=== PATIENT | female | born 1965 | race Caucasian/White ===

== ENCOUNTER 2022-03-21 12:27 | Outpatient (CLI) | payer BC ==
[2022-03-21 13:09] LABS: BASOPHILS # (AUTO) 0.1 X10'3 (0-0.2); EOSINOPHILS # (AUTO) 0.3 X10'3 (0-0.9); HEMATOCRIT 39.7 % (35.0-45.0); HEMOGLOBIN 13.5 g/dl (12.0-16.0); LYMPHOCYTES # (AUTO) 1.2 X10'3 (1.1-4.8); MEAN CORPUSCULAR HEMOGLOBIN 28.6 PG (27.0-31.0); MEAN CORPUSCULAR HGB CONC 34.1 g/dL (33.0-36.5); MEAN CORPUSCULAR VOLUME 83.8 FL (78-98); MEAN PLATELET VOLUME 8.5 FL (7.4-10.4); MONOCYTES # (AUTO) 0.5 X10'3 (0-0.9); MONOCYTES % (AUTO) 10.1 % (2-12); NEUTROPHILS # (AUTO) 3.3 X10'3 (1.8-7.7); NEUTROPHILS % (AUTO) 61.9 % (42-75); PLATELET COUNT 175 X10'3 (140-440); RED BLOOD COUNT 4.73 X10'6 (4.20-5.60); RED CELL DISTRIBUTION WIDTH 13.3 % (11.5-14.5); WHITE BLOOD COUNT 5.3 X10'3 (4.5-11.0)
[2022-03-21 13:12] LABS: CLARITY,URINE CLEAR (Clear); COLOR,URINE YELLOW (Yellow); GLUCOSE, URINE NEGATIVE (Neg); HEMOGLOBIN A1C 5.6 % (4.5-6.2); KETONES,URINE NEGATIVE (Neg); LEUKOCYTE ESTERASE ,URINE NEGATIVE (Neg); NITRITES, URINE NEGATIVE (Neg); OCCULT BLOOD,URINE NEGATIVE (Neg); PH,URINE 7.5 (4.8-8.0); PROTEIN,URINE NEGATIVE (Neg); UROBILINOGEN,URINE 0.2 E.U/dL (0.2-1.0)
[2022-03-21 13:15] LABS: UA COLLECTION TYPE CLN CATCH MIDSTREAM
[2022-03-21 13:23] LABS: ANION GAP 8 (8-16); BLOOD UREA NITROGEN 11 MG/DL (7-18); BUN/CREATININE RATIO 15.7 (6.6-38.0); CHLORIDE 104 MMOL/L (99-107); GLUCOSE 90 MG/DL (70-104); POTASSIUM 4.3 MMOL/L (3.5-5.1); SODIUM 142 MMOL/L (135-145); TOTAL CARBON DIOXIDE 30.1 MMOL/L (24-32)
[2022-03-21 13:24] LABS: ALANINE AMINOTRANSFERASE 35 U/L (12-78); ALBUMIN 3.9 G/DL (3.4-5.0); ALBUMIN/GLOBULIN RATIO 1.1 (1.1-1.5); ALKALINE PHOSPHATASE 59 IU/L (46-116); ASPARTATE AMINO TRANSFERASE 20 U/L (10-37); BILIRUBIN,TOTAL 0.8 MG/DL (0.1-1.0); TOTAL PROTEIN 7.5 G/DL (6.4-8.2); eGFR 86 ML/MIN
[2022-03-21 13:33] LABS: CHOLESTEROL 194 MG/DL (0-200); HDL CHOLESTEROL 39 MG/DL (35-60); LDL CHOLESTEROL 112 MG/DL (50-100); TRIGLYCERIDES 217 MG/DL (20-135)
== END 2022-03-21 23:59 | disposition home or self-care (01) ==
LOC: LAB 12:27
PROVIDERS: ATTEND Nurse Practitioner
DX: Z00.01 Encounter for general adult medical examination with abnormal findings (principal); Z12.11 Encounter for screening for malignant neoplasm of colon; K59.09 Other constipation; M15.1 Heberden's nodes (with arthropathy); R53.83 Other fatigue; E55.9 Vitamin D deficiency, unspecified; Z83.3 Family history of diabetes mellitus; Z78.9 Other specified health status
CPT/HCPCS: 36415; 80053; 80061; 81003; 82306; 82607; 82746; 83036; 84439; 84443; 85025; 85651; 86038

== ENCOUNTER 2022-04-18 07:50 | Outpatient (CLI) | payer BC ==
[2022-04-18] MEDS ORDERED: GADOTERATE MEGLUMINE 10 MMOL/20 ML SYRINGE IV ONE (10:34)
== END 2022-04-18 23:59 | disposition home or self-care (01) ==
LOC: RAD 07:50
PROVIDERS: ATTEND Otolaryngology
DX: R59.0 Localized enlarged lymph nodes (principal)
CPT/HCPCS: 70543; A9575

== ENCOUNTER 2022-05-15 06:26 | Day surgery (SDC) | payer BC ==
[~2022-05-15] VITALS: Ht 152.4 cm; Wt 79.3 kg
[2022-05-15] MEDS ORDERED: glucosamine (07:00)
[2022-05-15] MEDS ORDERED: CA C1TAB86 PO (07:00)
[2022-05-15] MEDS ORDERED: DOCU-148 PO (07:00)
[2022-05-15] MEDS ORDERED: MUSHROOM SUPPLEMENT (07:00)
[2022-05-15] MEDS ORDERED: OMEG1CAP13 PO (07:00)
[2022-05-15] MEDS ORDERED: ASCO-139 PO (07:00)
[2022-05-15] MEDS ORDERED: CHOL20004 PO (07:00)
[2022-05-15 07:04] VITALS: BP 123/68
[2022-05-15 07:05] VITALS: BP 123/68
[2022-05-15] MEDS ORDERED: LIDOcaine 1%/PF 5ML 10 MG/ML VIAL SQ ONE (07:50)
[2022-05-15] MEDS ORDERED: LIDOcaine 1% 30ml preserv. free vial SQ STA (08:39)
[2022-05-15 09:00] VITALS: BP 115/63
== END 2022-05-15 09:15 | disposition home or self-care (01) ==
LOC: SSTAY O 06:26
PROVIDERS: ATTEND Radiology Vascular & Interventional Radiology
DX: R59.0 Localized enlarged lymph nodes (principal); Z88.0 Allergy status to penicillin; Z88.2 Allergy status to sulfonamides; Z79.899 Other long term (current) drug therapy; Z98.890 Other specified postprocedural states
CPT/HCPCS: 10005

== ENCOUNTER 2022-06-25 15:57 | Outpatient (CLI) | payer BC ==
[~2022-06-25 15:57] MED LIST: ASCO-139 PO; CA C1TAB86 PO; CHOL20004 PO; DOCU-148 PO; MUSHROOM SUPPLEMENT; OMEG1CAP13 PO; glucosamine
== END 2022-06-25 23:59 | disposition home or self-care (01) ==
LOC: LAB 15:57
PROVIDERS: ATTEND Nurse Practitioner
DX: Z00.01 Encounter for general adult medical examination with abnormal findings (principal); Z12.11 Encounter for screening for malignant neoplasm of colon; D86.2 Sarcoidosis of lung with sarcoidosis of lymph nodes; E55.9 Vitamin D deficiency, unspecified; R59.9 Enlarged lymph nodes, unspecified; Z78.9 Other specified health status; R06.02 Shortness of breath
CPT/HCPCS: 36415; 71046; 82164; 83615; 85651; 86140

== ENCOUNTER 2022-11-07 13:47 | Outpatient (CLI) | payer BC ==
[~2022-11-07 13:47] MED LIST changes: +OMEG-45 PO; -OMEG1CAP13 PO
== END 2022-11-07 23:59 | disposition home or self-care (01) ==
LOC: RAD 13:47
PROVIDERS: ATTEND Nurse Practitioner
DX: R91.1 Solitary pulmonary nodule (principal); D86.9 Sarcoidosis, unspecified
CPT/HCPCS: 71250

== ENCOUNTER 2024-03-16 11:54 | Outpatient (CLI) | payer BC ==
[2024-03-16 12:26] LABS: BILIRUBIN,URINE NEGATIVE (Neg); CLARITY,URINE CLEAR (Clear); COLOR,URINE YELLOW (Yellow); GLUCOSE, URINE NEGATIVE (Neg); KETONES,URINE NEGATIVE (Neg); LEUKOCYTE ESTERASE ,URINE NEGATIVE (Neg); NITRITES, URINE NEGATIVE (Neg); OCCULT BLOOD,URINE NEGATIVE (Neg); PROTEIN,URINE NEGATIVE (Neg); UROBILINOGEN,URINE 0.2 E.U/dL (0.2-1.0)
[2024-03-16 12:28] LABS: BASOPHILS # (AUTO) 0.1 X10'3 (0-0.2); BASOPHILS % (AUTO) 1.2 % (0-1); EOSINOPHILS # (AUTO) 0.3 X10'3 (0-0.9); EOSINOPHILS % (AUTO) 4.9 % (0-6); HEMATOCRIT 41.6 % (35.0-45.0); HEMOGLOBIN 14.3 g/dl (12.0-16.0); LYMPHOCYTES # (AUTO) 1.3 X10'3 (1.1-4.8); LYMPHOCYTES % (AUTO) 24.9 % (21-51); MEAN CORPUSCULAR HEMOGLOBIN 29.7 PG (27.0-31.0); MEAN CORPUSCULAR HGB CONC 34.3 g/dL (33.0-36.5); MEAN CORPUSCULAR VOLUME 86.6 FL (78-98); MEAN PLATELET VOLUME 8.2 FL (7.4-10.4); MONOCYTES # (AUTO) 0.5 X10'3 (0-0.9); MONOCYTES % (AUTO) 9.4 % (2-12); NEUTROPHILS # (AUTO) 3.1 X10'3 (1.8-7.7); NEUTROPHILS % (AUTO) 59.6 % (42-75); PLATELET COUNT 188 X10'3 (140-440); RED BLOOD COUNT 4.81 X10'6 (4.20-5.60); WHITE BLOOD COUNT 5.2 X10'3 (4.5-11.0)
[2024-03-16 12:30] LABS: UA COLLECTION TYPE CLN CATCH MIDSTREAM
[2024-03-16 12:49] LABS: ALANINE AMINOTRANSFERASE 33 U/L (12-78); ALBUMIN 4.2 G/DL (3.4-5.0); ALBUMIN/GLOBULIN RATIO 1.2 (1.1-1.5); ALKALINE PHOSPHATASE 55 IU/L (46-116); ANION GAP 7 (8-16); ASPARTATE AMINO TRANSFERASE 18 U/L (10-37); BILIRUBIN,TOTAL 0.6 MG/DL (0.1-1.0); BLOOD UREA NITROGEN 17 MG/DL (7-18); BUN/CREATININE RATIO 25.8 (10.0-20.0); CALCIUM 9.3 MG/DL (8.5-10.1); CHLORIDE 105 MMOL/L (99-107); CHOLESTEROL 210 MG/DL (0-200); CREATININE 0.66 MG/DL (0.40-0.90); GLUCOSE 93 MG/DL (70-104); HDL CHOLESTEROL 42 MG/DL (35-60); LDL CHOLESTEROL 130 MG/DL (50-100); POTASSIUM 4.4 MMOL/L (3.5-5.1); SODIUM 142 MMOL/L (135-145); THYROID STIMULATING HORMONE 1.31 ulU/ml (0.34-4.50); TOTAL CARBON DIOXIDE 29.7 MMOL/L (24-32); TOTAL PROTEIN 7.8 G/DL (6.4-8.2); TRIGLYCERIDES 175 MG/DL (20-135); eGFR > 90 ML/MIN
[2024-03-18 16:07] LABS: THYROXINE (T4) 8.6 ug/dL (4.5-12.0); VITAMIN D, 1,25 DIHYDROXY 72.5 pg/mL (24.8-81.5)
== END 2024-03-16 23:59 | disposition home or self-care (01) ==
LOC: LAB 11:54
PROVIDERS: ATTEND Nurse Practitioner Family
DX: Z13.220 Encounter for screening for lipoid disorders (principal); Z13.29 Encounter for screening for other suspected endocrine disorder; Z00.01 Encounter for general adult medical examination with abnormal findings; E55.9 Vitamin D deficiency, unspecified
CPT/HCPCS: 36415; 80053; 80061; 81003; 82652; 84436; 84443; 85025

== ENCOUNTER 2024-06-28 15:45 | Outpatient (CLI) | payer BC ==
[~2024-06-28 15:45] MED LIST changes: +CIPR5DRO EACH EAR
[2024-08-30] MEDS ORDERED: TURM500C4 PO (10:46)
[2024-08-30] MEDS ORDERED: NIAC500T44 PO (10:46)
[2024-08-30] MEDS ORDERED: FLAX OIL (10:46)
[2024-09-02] MEDS ORDERED: FLAX10007 PO (11:34)
[2024-09-02] MEDS ORDERED: CALC-627 PO (11:34)
== END 2024-06-28 23:59 | disposition home or self-care (01) ==
LOC: RAD 15:45
PROVIDERS: ATTEND Nurse Practitioner Family
DX: R91.8 Other nonspecific abnormal finding of lung field (principal)
CPT/HCPCS: 71250

== ENCOUNTER 2024-07-06 15:46 | Outpatient (CLI) | payer BC | END 2024-07-06 23:59 | disposition home or self-care (01) | LOC: RAD 15:46 | PROVIDERS: ATTEND Otolaryngology | DX: H90.5 Unspecified sensorineural hearing loss (principal); D86.9 Sarcoidosis, unspecified | CPT/HCPCS: 70480 ==

== ENCOUNTER 2024-09-01 12:47 | Outpatient (CLI) | payer BC ==
[~2024-09-01] VITALS: Ht 154.9 cm; Wt 81.6 kg
[~2024-09-01 12:47] MED LIST changes: -CIPR5DRO EACH EAR; +FLAX OIL; -MUSHROOM SUPPLEMENT; +NIAC500T44 PO; -OMEG-45 PO; +TURM500C4 PO; -glucosamine
[2024-09-01] MEDS: albuterol 2.5 MG/3 ML nebule NEB ONE (13:33)
[2024-09-01 13:36] VITALS: PULSE 72; RESP 16; O2SAT 98
[2024-09-01 13:47] VITALS: PULSE 80; RESP 16
[2024-09-02] MEDS ORDERED: CALC-627 PO (11:34)
[2024-09-02] MEDS ORDERED: FLAX10007 PO (11:34)
== END 2024-09-01 23:59 | disposition home or self-care (01) ==
LOC: RT 12:47
PROVIDERS: ATTEND Internal Medicine Critical Care Medicine
DX: J84.112 Idiopathic pulmonary fibrosis (principal); R06.02 Shortness of breath
CPT/HCPCS: 94060; 94727; 94729; 94760

== ENCOUNTER 2024-09-03 07:31 | Day surgery (SDC) | payer BC ==
[2024-08-30 10:55] LABS: MEAN CORPUSCULAR HGB CONC 34.5 g/dL (33.0-36.5); MEAN PLATELET VOLUME 8.4 FL (7.4-10.4); PRE OP HEMOGLOBIN 13.8 g/dL (12.0-16.0); PRE OP WHITE BLOOD COUNT 6.4 10'3 (4.8-10.8)
[2024-08-30 10:57] LABS: BASOPHILS # (AUTO) 0.1 X10'3 (0-0.2); BASOPHILS % (AUTO) 1.1 % (0-1); EOSINOPHILS # (AUTO) 0.2 X10'3 (0-0.9); EOSINOPHILS % (AUTO) 3.2 % (0-6); LYMPHOCYTES # (AUTO) 1.2 X10'3 (1.1-4.8); LYMPHOCYTES % (AUTO) 18.3 % (21-51); MEAN CORPUSCULAR HEMOGLOBIN 29.9 PG (27.0-31.0); MEAN CORPUSCULAR VOLUME 86.9 FL (78-98); MONOCYTES # (AUTO) 0.7 X10'3 (0-0.9); MONOCYTES % (AUTO) 10.8 % (2-12); NEUTROPHILS # (AUTO) 4.3 X10'3 (1.8-7.7); NEUTROPHILS % (AUTO) 66.6 % (42-75); PRE OP HEMATOCRIT 40.2 % (35.0-45.0); PRE OP PLATELET COUNT 246 X10'3 (140-440); RED BLOOD COUNT 4.62 X10'6 (4.20-5.60); RED CELL DISTRIBUTION WIDTH 13.4 % (11.5-14.5)
[2024-08-30 11:08] LABS: ALBUMIN/GLOBULIN RATIO 1.1 (1.1-1.5); ALKALINE PHOSPHATASE 60 IU/L (46-116); BLOOD UREA NITROGEN 11 MG/DL (7-18); BUN/CREATININE RATIO 16.9 (10.0-20.0); CALCIUM 9.3 MG/DL (8.5-10.1); CHLORIDE 103 MMOL/L (99-107); CREATININE 0.65 MG/DL (0.40-0.90); PRE OP ALT 31 U/L (30-65); PRE OP ANION GAP 8 (8-16); PRE OP AST 20 U/L (10-37); PRE OP GLUCOSE 101 MG/DL (70-104); PRE OP POTASSIUM 4.3 MMOL/L (3.4-5.1); PRE OP SODIUM 139 MMOL/L (135-145); TOTAL CARBON DIOXIDE 28.3 MMOL/L (24-32); TOTAL PROTEIN 7.8 G/DL (6.4-8.2); eGFR > 90 ML/MIN
[2024-09-03] VITALS (7 sets, daily range): BP systolic 109–143; BP diastolic 59–82; PULSE 70–83; RESP 11–18; TEMP 98.2; O2SAT 97–99
[~2024-09-03] VITALS: Ht 154.9 cm; Wt 82.1 kg
[~2024-09-03 07:31] MED LIST changes: -CA C1TAB86 PO; +CALC-627 PO; -FLAX OIL; +FLAX10007 PO
[2024-09-03] MEDS ORDERED: labetalol 20mg/4ml (5mg/ml) syringe IV PRN (08:00)
[2024-09-03] MEDS ORDERED: fentaNYL/PF 50MCG/1 ML 2ML syringe IV PRN ×2 (08:00)
[2024-09-03] MEDS ORDERED: ondansetron/PF 4mg/2ml inj IV PRN (08:00)
[2024-09-03] MEDS ORDERED: hydrALAZINE 20mg/ml inj. IV PRN (08:00)
[2024-09-03] MEDS ORDERED: morphine 4 MG/ML inj SYRINge IV PRN (08:00)
[2024-09-03] MEDS ORDERED: morphine 2 MG/ML inj. syringe IV PRN (08:00)
[2024-09-03] MEDS: famotidine 20mg tablet PO ONE (08:04)
[2024-09-03] MEDS: ringers solution, lacted 1,000 ML IV SCH ×2 (08:04→11:00)
[2024-09-03] MEDS ORDERED: sevoflurane 250ml liquid IH ONE (09:44)
[2024-09-03] MEDS ORDERED: midazolam 1 mg/ML 2ml injection ONE (10:02)
[2024-09-03] MEDS ORDERED: rocuronium 10mg/ml inj IV ONE (10:02)
[2024-09-03] MEDS ORDERED: propofol inj 20 ML IV ONE (10:02)
[2024-09-03] MEDS ORDERED: ondansetron/PF 4mg/2ml inj ONE ×2 (10:02→10:03)
[2024-09-03] MEDS ORDERED: LIDOcaine 2% (20mg/ml) 5ml vial ONE (10:04)
[2024-09-03] MEDS ORDERED: fentaNYL/PF 50MCG/1 ML 2ML syringe ONE (10:05)
[2024-09-03] MEDS ORDERED: sugammadex 200mg/2ml injection IV ONE (10:13)
[2024-09-03] MEDS ORDERED: labetalol 20mg/4ml (5mg/ml) syringe IV ONE (10:36)
== END 2024-09-03 12:00 | disposition home or self-care (01) ==
LOC: PAS 07:31
PROVIDERS: ATTEND Internal Medicine Critical Care Medicine
DX: J98.4 Other disorders of lung (principal); E66.9 Obesity, unspecified; Z85.828 Personal history of other malignant neoplasm of skin; Z79.899 Other long term (current) drug therapy; Z90.89 Acquired absence of other organs; Z98.891 History of uterine scar from previous surgery; Z68.34 Body mass index [BMI] 34.0-34.9, adult; Z88.0 Allergy status to penicillin; Z88.2 Allergy status to sulfonamides
CPT/HCPCS: 31624; 31627; 31628; 31629; 31653; 36415; 71250; 80053; 82948; 85025; 87015; 87070; 87102; 87116; 87206; 93005; 94760; J1100; J2003; J2250; J2405; J2704; J3010; J3490; J7120; Z7506; Z7508; Z7512; 31622; 31625; 31626; 31654; A4618

== ENCOUNTER → 2024-12-07 | Outpatient (CLI) | payer BC ==
[2024-12-07 16:37] LABS: ALANINE AMINOTRANSFERASE 31 U/L (12-78); ALKALINE PHOSPHATASE 63 IU/L (46-116); ANION GAP 6 (8-16); ASPARTATE AMINO TRANSFERASE 18 U/L (10-37); BILIRUBIN,DIRECT 0.1 MG/DL (0-0.3); BILIRUBIN,TOTAL 0.5 MG/DL (0.1-1.0); BLOOD UREA NITROGEN 15 MG/DL (7-18); CHLORIDE 105 MMOL/L (99-107); GLUCOSE 94 MG/DL (70-104); SODIUM 140 MMOL/L (135-145); TOTAL CARBON DIOXIDE 29.2 MMOL/L (24-32); TOTAL PROTEIN 7.9 G/DL (6.4-8.2); eGFR > 90 ML/MIN
== END | disposition home or self-care (01) ==
LOC: RAD 15:52
PROVIDERS: ATTEND Internal Medicine Critical Care Medicine
DX: R06.02 Shortness of breath (principal)
CPT/HCPCS: 36415; 80053; 82248; 82306; 82330

== ENCOUNTER 2024-12-08 15:34 | Outpatient (CLI) | payer BC ==
[~2024-12-08] VITALS: Ht 154.9 cm; Wt 81.6 kg
[2024-12-08] MEDS: albuterol 2.5 MG/3 ML nebule NEB ONE (16:17)
[2024-12-08 16:21] VITALS: PULSE 73; RESP 16; O2SAT 79
[2024-12-08 16:32] VITALS: PULSE 76; RESP 16
== END 2024-12-08 23:59 | disposition home or self-care (01) ==
LOC: RT 15:34
PROVIDERS: ATTEND Internal Medicine Critical Care Medicine
DX: J84.112 Idiopathic pulmonary fibrosis (principal); R06.02 Shortness of breath
CPT/HCPCS: 94060; 94727; 94729; 94760

== ENCOUNTER 2025-08-10 11:35 | Outpatient (CLI) | payer BC ==
[2025-08-10 12:30] LABS: MEAN PLATELET VOLUME 8.5 FL (7.4-10.4); RED CELL DISTRIBUTION WIDTH 13.0 % (11.5-14.5)
[2025-08-10 12:32] LABS: LEUKOCYTE ESTERASE ,URINE NEGATIVE (Neg); NITRITES, URINE NEGATIVE (Neg); OCCULT BLOOD,URINE NEGATIVE (Neg)
[2025-08-10 12:37] LABS: UA COLLECTION TYPE NON-SPECIFIED
[2025-08-10 12:46] LABS: CHOL/HDL RATIO 5.6 (0.00-4.99); CREATININE 0.61 MG/DL (0.40-0.90); LDL CHOLESTEROL 140 MG/DL (50-100); TOTAL CARBON DIOXIDE 28.5 MMOL/L (24-32); eGFR > 90 ML/MIN
[2025-08-12 09:10] LABS: ESTRADIOL 7.5 pg/mL (0.0-54.7); FSH, SERUM 47.5 mIU/mL (25.8-134.8); LUTEINIZING HORMONE 23.7 mIU/mL (7.7-58.5); PROGESTERONE 0.1 ng/mL (.)
== END 2025-08-10 23:59 | disposition home or self-care (01) ==
LOC: RAD 11:35
PROVIDERS: ATTEND Nurse Practitioner Family
DX: Z13.29 Encounter for screening for other suspected endocrine disorder (principal); Z00.01 Encounter for general adult medical examination with abnormal findings; R53.83 Other fatigue; E55.9 Vitamin D deficiency, unspecified; Z80.3 Family history of malignant neoplasm of breast; E78.5 Hyperlipidemia, unspecified; Z78.0 Asymptomatic menopausal state
CPT/HCPCS: 36415; 80053; 80061; 81003; 82306; 82607; 82670; 82746; 83001; 83002; 84144; 84439; 84443; 85025

== ENCOUNTER 2025-09-12 13:51 | Emergency (ER) | payer BC ==
[~2025-09-12] VITALS: Ht 154.9 cm; Wt 82.6 kg
--- NOTE | 2025-09-12 14:12 | Physician Documentation ---
History of Present Illness ~ Chief Complaint: Abdominal Pain Stated Complaint: BACK PAIN Time Seen by MD: 17:26 HPI This is a 60-year-old female with a history of diverticulitis who presents with lower abdominal and lower back pain for the last three days along with increased urinary frequency. See MSE HPI. Patient reports symptoms feel like similar diverticulitis flare-ups. Patient reports no fever. Greeted the patient room six at 5:20 p.m. introduced myself as time with a Chaitanya physician mechanic's assistant. Patient reports some waxing and waning lower abdominal pain for the last two weeks increasing over the last three days with reported tenesmus without diarrhea, melena stool or hematochezia. Reports he has symptoms seem similar to that of her diverticulitis 22 years ago. Reports that time she took antibiotics for resolution. Has had two colonoscopies since that time of the last one being approximately 13 years ago. Additionally he is patient of history of sarcoidosis. She denies any urinary symptoms. Denies recent change in nutrition. Denies fever, nausea or vomiting or diarrhea. No recent hospitalizations, known ill contacts or recent travels. Medication Reconciliation Allergies: Coded Allergies: Penicillins (Verified Allergy, Unknown, RASH, 09/12/25) Sulfa (Sulfonamide Antibiotics) (Verified Allergy, Unknown, RASH SEVERE HIVES, 09/12/25) erythromycin base (Verified Allergy, Unknown, 09/12/25) Scheduled Ascorbic Acid (Vitamin C), 1 TAB PO DAILY, (Reported) Calcium/Magnesium (Calcium Magnesium Tablet), 1 TAB PO DAILY, (Reported) Cholecalciferol (Vitamin D), 5,000 MCG PO DAILY, (Reported) Docusate Sodium (Colace), 200 MG PO DAILY, (Reported) Flaxseed (Flaxseed Oil), 1,000 MG PO DAILY, (Reported) Niacinamide (Niacinamide), 500 MG PO DAILY, (Reported) Turmeric/Turmeric Root Extract (Turmeric 500 mg Capsule), 500 MG PO DAILY, (Reported) Review of Systems All Other Systems at this time: Reviewed and Negative ROS As stated above in the HPI, otherwise all systems are reviewed and negative. Constitutional: Reports: see HPI Gastrointestinal: Reports: see HPI Physical Exam Vital Signs: RN Vital Signs have been reviewed: Yes, Temperature: 96.9, Source: Temporal, Heart Rate: 62, Respiratory Rate: 18, BP: 147/70, Pulse Oximetry: 100, Weight: 82.600 Oxygen Flow Rate: 0 Physical Exam VITALS: Reviewed and as above. GENERAL: Alert, nontoxic appearing, no apparent distress. HEENT: RESPIRATORY: No increased work of breathing, no respiratory distress, speaking in full clear sentences CHEST: CV: BACK: GI: MUSCULOSKELETAL: SKIN: NEURO: PSYCH: General Appearance: alert, WD/WN, mild distress EENT: PERRL/EOMI Neck: normal inspection Respiratory: lungs clear Chest: no accessory muscle use Cardiology Exam: normal peripheral pulses, regular rate, rhythm, no edema, no gallop, no JVD Gastrointestinal: tenderness (Mild tenderness of the right lower quadrant and left lower quadrant with hyperactive bowel sounds), increased bowel sounds Bladder: non tender Rectal: deferred Back: normal inspection Extremities: normal range of motion Neurologic: oriented x4 Psychiatric: normal mood/affect Skin: normal color Lymphatic: no adenopathy Progress Results/Orders Results/Orders Orders - SYLVESTER WEBBER PAC Ct Chest Abdomen Pelvis Iv Con (09/12/25 17:52) Completed Orders - SYLVESTER WEBBER PAC Ct Chest Abdomen Pelvis Iv Con (09/12/25 17:52) Iohexol 300mg/Ml 100ml Inj. (Omnipaque-3 (09/12/25 17:46) Vital Signs 09/12/25 09/12/25 09/12/25 09/12/25 13:56 17:46 17:48 18:31 Temp 96.9 98.2 Pulse 62 60 62 Resp 18 16 16 18 B/P (MAP) 147/70 142/67 (92) 141/75 (97) Pulse Ox 100 100 99 O2 Flow Rate 0 0 0 Laboratory Tests Test 09/12/25 14:00 09/12/25 14:22 Urine Specimen Description Cln catch midstream Urine Color Yellow Urine Clarity Clear Urine pH 7.5 Urine Specific [place] 1.015 Urine Protein Negative Urine Glucose (UA) Negative Urine Ketones Negative Urine Occult Blood Negative Urine Nitrite Negative Urine Bilirubin Negative Urine Urobilinogen 0.2 Urine Leukocyte Esterase Negative Urine Culture Indicated Not ind Volume Urine Centrifuged 10 ml Urine HCG, Qualitative Negative Urine Comment White Blood Count 4.9 Red Blood Count 4.79 Hemoglobin 13.9 Hematocrit 41.0 Mean Corpuscular Volume 85.6 Mean Corpuscular Hemoglobin 29.0 Mean Corpuscular Hemoglobin Concent 33.9 Red Cell Distribution Width 13.1 Platelet Count 189 Mean Platelet Volume 8.5 Neutrophils (%) (Auto) 65.4 Lymphocytes (%) (Auto) 22.5 Monocytes (%) (Auto) 8.9 Eosinophils (%) (Auto) 2.5 Basophils (%) (Auto) 0.7 Neutrophils # (Auto) 3.2 Lymphocytes # (Auto) 1.1 Monocytes # (Auto) 0.4 Eosinophils # (Auto) 0.1 Basophils # (Auto) 0.0 CBC Comment Sodium Level 140 Potassium Level 3.9 Chloride Level 104 Carbon Dioxide Level 29.2 Anion Gap 7 L Blood Urea Nitrogen 7 Creatinine 0.61 Estimated GFR/1.73 m2 > 90 BUN/Creatinine Ratio 11.5 Glucose Level 98 Calcium Level 9.1 Total Bilirubin 0.8 Aspartate Amino Transf (AST/SGOT) 21 Alanine Aminotransferase (ALT/SGPT) 32 Alkaline Phosphatase 66 Total Protein 7.8 Albumin 4.2 Globulin 3.6 Albumin/Globulin Ratio 1.2 Lipase 37 Chemistry Comments Medical Decision Making Additional information obtaine: N/A Findings MSE performed in triage and patient returned to ED lobby by nursing staff to await available ED room. Patient is placed in room six. Direct bedside evaluation by myself at 5:20 p.m.. He has been suffered some essential physician mechanic's assistant. Examination history warrants CT imaging with contrast to evaluate for abdominopelvic pathologies. Patient resting comfortably. Not requiring pain management at this time. Initial laboratory screening all reassuring. CT imaging obtained and results reviewed. No clear indication diverticulitis. Patient be pending discharge 6:42 p.m. with instructions to follow up with GI. Diff Dx GI Bleed:Consideration: Include: AE fistula, Angiodysplasia, Bleeding diathesis, Blood loss anemia, Carcinoma, Diverticulosis, Diverticulitis, Esophageal varicies, Esophagitis, Gastritis, Gastroenteritis, Inflammatory BD, Liudmila-Reynoso syndrome, Meckel's diverticulum, PUD, Other Diff Dx Pain:Considerations: Include: Appendicitis, Bowel obstruction, Gastroenteritis, Urinary obstruction, Urinary tract infection, Urolithiasis Diff Dx N/V/D:Considerations: Include: Inflammatory BD Diff Dx Rectal:Considerations: Include: Fistula Departure Disposition: 01 HOME / SELF CARE / HOMELESS Impression: Primary Impression: Abdominal pain Qualified Codes: R10.32 - Left lower quadrant pain Condition: Stable Discharge Instructions: Abdominal Pain (Nonspecific) Additional Instructions: Today in the emergency department you had labs obtained and CT imaging. He has no clear etiology for your pain. Recommendations to follow up with the GI doctor and/or return to the emergency department for increased pain, fever or bloody stool. Thank you for visiting emergency department [facility]. Referrals: NO PRIMARY CARE PROVIDER (PCP) Education Educated: Patient Educated regarding: diagnosis, treatment, prognosis, need for follow up Signature Scribe Signature: . Attestation: . WILLIAM PAUL SPINNING LATHE OPERATOR AUTOMATIC Sep 12, 2025 14:11 SYLVESTER WEBBER PAC Sep 12, 2025 17:41
[2025-09-12 14:40] LABS: MEAN PLATELET VOLUME 8.5 FL (7.4-10.4); RED CELL DISTRIBUTION WIDTH 13.1 % (11.5-14.5)
[2025-09-12 14:41] LABS: LEUKOCYTE ESTERASE ,URINE NEGATIVE (Neg); NITRITES, URINE NEGATIVE (Neg); OCCULT BLOOD,URINE NEGATIVE (Neg)
[2025-09-12 14:45] LABS: URINE HCG NEGATIVE (NEG)
[2025-09-12 14:52] LABS: UA COLLECTION TYPE CLN CATCH MIDSTREAM
[2025-09-12 15:11] LABS: CREATININE 0.61 MG/DL (0.40-0.90); TOTAL CARBON DIOXIDE 29.2 MMOL/L (24-32); eCRCL 74 ML/MIN; eGFR > 90 ML/MIN
[2025-09-12] MEDS ORDERED: iohexol 300mg/ml 100ml inj. ONE (17:46)
[2025-09-12 17:48] VITALS: TEMP 98.2
--- NOTE | 2025-09-12 18:22 | RADIOLOGY REPORT ---
EXAM: CT CT CHEST ABDOMEN PELVIS IV CON W/ IV CONTRAST History: LLQ >RLQ pain t x2 weeks PmHx Diverticuliti sarcoidosis, Hx lung nodules Comparison Study: CT CT CHEST ION on DOS: 08/30/24, CT CT CHEST on DOS: 06/28/24, CT CHEST on DOS: 11/07/22 TECHNIQUE: Multidetector spiral CT of the chest, abdomen and pelvis was performed from lower neck to pubic symphysis. Intravenous contrast was administered during this examination. Portal venous imaging was obtained. Axial, coronal and sagittal multiplanar reformats were performed by the technologist on a separate workstation. Radiation Dose : 1. Chest/Abdomen/Pelvis: CTDIvol 32.77 mGy, DLP 1414.51 mGy*cm. FINDINGS: Lower neck: Normal thyroid. Lungs: Patchy hazy ground-glass opacity throughout both lungs again noted with slight mid and upper lung predominance. Few scattered centrilobular nodules within the left upper lobe apex laterally and posteriorly, mildly progressed. No dense focal airspace disease. Heart/Vascular Structures: Normal heart size. No pericardial effusion. Lymph Nodes: Grossly stable low volume mediastinal and bilateral hilar lymph nodes. Pleura: No pleural effusion or significant pneumothorax. Liver: The liver is normal in size. No focal lesions. Normal hepatic vascular enhancement. Gallbladder and Biliary Tree: Unremarkable Spleen: Unremarkable Pancreas: The pancreas is normal in appearance without focal lesions or abnormal enhancement. Adrenal Glands: Unremarkable Kidneys: Kidneys demonstrate normal symmetric enhancement without focal lesions, calculi or hydronephrosis. Bladder: Unremarkable Bowel: The stomach is grossly normal in appearance. Small bowel and colon are normal in caliber and distribution. The appendix is not visualized; however, no secondary findings of acute appendicitis identified. Ascites: Absent Lymphadenopathy: No mesenteric, retroperitoneal or periportal lymphadenopathy. Abdominal Wall and Mesentery: Unremarkable. Vasculature: The visualized abdominal aorta is normal in size and caliber. Abdominal and pelvic vessels demonstrate normal enhancement. Pelvic Organs: Unremarkable Musculoskeletal: No aggressive focal bony lesions, acute fractures or dislocation. IMPRESSION: Grossly stable patchy ground-glass opacity throughout both lungs presumably related to a chronic inflammatory condition such as sarcoid. Please note an acute infectious process could have a similar appearance. Mild superimposed mucous plugging within the left upper lobe. Low volume adenopathy which would be compatible with sarcoidosis.
[2025-09-12 19:22] VITALS: BP 124/76; PULSE 68; RESP 18; O2SAT 98
== END 2025-09-12 19:24 | disposition home or self-care (01) ==
LOC: ER 13:52
DX: R10.32 Left lower quadrant pain (principal); Z88.0 Allergy status to penicillin; Z88.2 Allergy status to sulfonamides; Z88.1 Allergy status to other antibiotic agents; Z79.899 Other long term (current) drug therapy
CPT/HCPCS: 36415; 71260; 74177; 80053; 81003; 81025; 83690; 85025; 99285; Q9967